=== PATIENT | male | born 1985 | race African-American/Black ===

== ENCOUNTER 2016-10-14 02:29 | Emergency (ER) | payer OTHER ==
[~2016-10-14 02:29] MED LIST: NO MEDICATIONS
== END 2016-10-14 03:22 | disposition home or self-care (01) ==
LOC: SED 02:29
DX: S61.432A Puncture wound without foreign body of left hand, initial encounter (principal); S61.431A Puncture wound without foreign body of right hand, initial encounter; F17.200 Nicotine dependence, unspecified, uncomplicated; Z23 Encounter for immunization; W54.0XXA Bitten by dog, initial encounter
CPT/HCPCS: 90471; 90715; 99283; J0295